=== PATIENT | male | born 1960 | race Caucasian/White ===

== ENCOUNTER 2019-05-29 07:41 | Outpatient (CLI) | payer OTHER, MEDICAID | END 2019-05-29 23:59 | disposition home or self-care (01) | LOC: ROC 07:41 | PROVIDERS: ATTEND Radiology Radiation Oncology | DX: C34.31 Malignant neoplasm of lower lobe, right bronchus or lung (principal) | CPT/HCPCS: 99214; G0463 ==

== ENCOUNTER 2019-08-14 07:38 | Outpatient (CLI) | payer OTHER, MEDICAID | END 2019-08-14 23:59 | disposition home or self-care (01) | LOC: ROC 07:38 | PROVIDERS: ATTEND Radiology Radiation Oncology | DX: Z08 Encounter for follow-up examination after completed treatment for malignant neoplasm (principal); C34.31 Malignant neoplasm of lower lobe, right bronchus or lung | CPT/HCPCS: 99212; G0463 ==

== ENCOUNTER 2019-11-16 14:37 | Inpatient (IN) | payer MEDICAID ==
[~2019-11-16] VITALS: Ht 182.9 cm; Wt 77.2 kg
[~2019-11-16 14:37] MED LIST: BACL-19 PO; GABA300C PO
--- NOTE | 2019-11-16 14:56 | NUR ---
CONTACT WITH PT, 59 YR OLD MALE HERE WITH C/O "SEVERE STOMACH PAINS, IT FEELS LIKE NAUSEA. I HAVENT THROWN UP. ON THE OF THIS MONTH I HAD MY FIRST CHEMO (LUNG CA) I FELT OK, THEN SATURDAY, I STARTED HAVING PAIN AND THE NAUSEA. I THOUGHT I COULD FIGHT IT OFF, BUT I JUST FEEL LIKE CRAP" PT SEEN BY DR GUNTER AT [facility]. "I WAS ON KETRUDA, BUT IT WASNT KILLING THE CANCER CELL" DX 07/10/2018, IN AUGUST 2018 STARTED DOING THE IMUNOTHERAPY.
[2019-11-16] MEDS ORDERED: ONDA8TAB9 PO (15:06)
[2019-11-16] MEDS ORDERED: FOLI-17 PO (15:06)
[2019-11-16] MEDS ORDERED: SODIUM CHLORIDE 0.9% 1,000 ML IV ONE (15:31)
[2019-11-16 15:51] LABS: MEAN CORPUSCULAR HEMOGLOBIN 31.3 pg (27.5-34.5); MEAN CORPUSCULAR HGB CONC 33.9 g/dL (33.2-36.2); MEAN CORPUSCULAR VOLUME 92.2 fL (81-97); MEAN PLATELET VOLUME 7.6 fL (7.4-10.4); PLATELET COUNT 420 x10^3/uL (130-400); RED BLOOD COUNT 5.24 x10^6/uL (4.38-5.82); RED CELL DISTRIBUTION WIDTH 14.5 % (9.4-14.8)
[2019-11-16 16:00] LABS: ALANINE AMINOTRANSFERASE 42 U/L (12-78); ALBUMIN 3.5 g/dL (3.4-5.0); ANION GAP 8 mmol/L (5-15); CALCIUM 9.5 mg/dL (8.5-10.1); CHLORIDE 99 mmol/L (98-107); CREATININE 0.97 mg/dL (0.7-1.3)
[2019-11-16] MEDS ORDERED: ONDANSETRON 2MG/ML, 2ML IVPush ONE (16:00)
[2019-11-16] MEDS ORDERED: HYDROmorphone 2 MG/ML, 1ML IVPush PRN (16:00)
[2019-11-16] MEDS ORDERED: SODIUM CHLORIDE FLUSH 10ML SYR IVF ONE (16:00)
[2019-11-16 16:02] LABS: MD YES
[2019-11-16 16:03] LABS: ALKALINE PHOSPHATASE 181 U/L (45-117); BILIRUBIN,TOTAL 0.8 mg/dL (0.2-1.0); TOTAL PROTEIN 7.6 g/dL (6.4-8.2)
[2019-11-16] MEDS ORDERED: ONDANSETRON 2MG/ML, 2ML ONE (16:03)
[2019-11-16] MEDS ORDERED: HYDROmorphone 1 MG/ML, 1ML INJ ONE (16:03)
--- NOTE | 2019-11-16 16:10 | NUR ---
IV STARTED, NS INFUSING ORDERED. PT MEDICATED ORDERED. AUTO BP AND PULSE OX IN PLACE. PT UPDATED ON POC. NO OTHER NEEDS EXPRESSED AT THIS TIME.
[2019-11-16 16:20] LABS: MICROSCOPIC INDICATED
--- NOTE | 2019-11-16 16:30 | NUR ---
PT "FEELS DOOPY" PT WITH PAIN DECREASED TO 07/11. AWARE OF WAITING FOR TEST RESULTS Addendum: 11/16/19 at 1833 by ALESSANDRA PT PLACED ON OXYGEN 2L NC R/T DECREASE IN SATS AFTER DILAUDID ADMINISTRATION.
--- NOTE | 2019-11-16 16:59 | NUR ---
PT ASKING FOR PO FLUIDS, DISCUSSED WITH DR FELTON. NO PO FLUIDS AT THIS TIME. DISCUSSED WITH PT. PT PROVIDED WITH LEMON GLYCERIN SWABS AND CT TO BE ORDERED. UNDERSTANDING VERBALIZED.
[2019-11-16 17:00] LABS: BAND#(MANUAL) 1.38 x10^3/uL; BANDS%(MANUAL) 7 % (0-7); LYMPH#(MANUAL) 0.39 x10^3/uL (1-3.4); LYMPHS% (MANUAL) 2 % (22-44); MONOS% (MANUAL) 1 % (2-9); SEG#(MANUAL) 17.73 x10^3/uL (1.8-6.8); SEGS% (MANUAL) 90 % (42-75)
[2019-11-16 17:01] LABS: <PLATELET ESTIMATE> INCREASED; <PLT MORPHOLOGY> NORMAL PLT MORPH; <RBC MORPHOLOGY> NORMAL
--- NOTE | 2019-11-16 18:06 | NUR ---
PT IN RADIOLOGY
--- NOTE | 2019-11-16 18:09 | NUR ---
PT RETURN TO ROOM. IV INFUSING WITHOUT REDNESS/SWELLING. PT PAIN 3-4/10. PT AWARE OF WAITING FOR TEST RESULTS. NO NEEDS EXPRESSED AT THIS TIME.
[2019-11-16] MEDS ORDERED: OMNIPAQUE 350 MG/ML, 100ML BOTTLE ONE (18:20)
[2019-11-16] MEDS ORDERED: AZITHROMYCIN 500 MG in SODIUM CHLORIDE 0.9% 250 ML IVPB ONE (19:00)
[2019-11-16] MEDS ORDERED: CEFTRIAXONE PMX 1GM/50ML 50 ML IVPB ONE (19:00)
--- NOTE | 2019-11-16 19:14 | NUR ---
PT AMBULATORY TO BATHROOM, STEADY GAIT. BEDSIDE REPORT FROM AVELINA SOLORIO.
--- NOTE | 2019-11-16 19:15 | NUR ---
BEDSIDE REPORT TO ROSANA QUAN
[2019-11-16] MEDS ORDERED: SODIUM CHLORIDE 0.9% 1,000 ML IV SCH (19:32)
--- NOTE | 2019-11-16 19:47 | NUR ---
ADMITTING MD TO BEDSIDE AT 1930.
[2019-11-16] MEDS ORDERED: CEFTRIAXONE PMX 1GM/50ML 50 ML ONE (19:48)
[2019-11-16] MEDS ORDERED: ACETAMINOPHEN 325 MG TABLET PO PRN (20:00)
[2019-11-16] MEDS ORDERED: HYDROcodone/APAP 5/325 TABLET PO PRN (20:00)
[2019-11-16] MEDS ORDERED: GUAIFENESIN/DM 200-20MG, 10ML UDC PO PRN (20:00)
[2019-11-16] MEDS ORDERED: VANCOMYCIN PER PHARMACY MC PRN (20:00)
[2019-11-16] MEDS ORDERED: morphine SULFATE 10 MG/ML, 1ML IVPush PRN (20:00)
[2019-11-16] MEDS ORDERED: DOCUSATE 100 MG CAPSULE PO PRN (20:00)
--- NOTE | 2019-11-16 20:00 | NUR ---
FIRST ATTEMPT TO CALL REPORT AT THIS TIME.
--- NOTE | 2019-11-16 20:12 | NUR ---
REPORT GIVEN TO FLOOR RN.
[2019-11-16] MEDS ORDERED: PHARMACOKINETIC MONITORING MC PRN (21:00)
[2019-11-16] MEDS ORDERED: PHARMACOKINETIC CONSULTATION MC ONE (21:00)
[2019-11-16] MEDS ORDERED: VANCOMYCIN 1,600 MG in SODIUM CHLORIDE 0.9% 250 ML IV SCH (21:00)
[2019-11-16] MEDS: PIPERACILLIN/TAZO/PMX 4.5GM 100 ML IV SCH (21:38)
[2019-11-16 22:33] VITALS: BP 153/94
[2019-11-16] MEDS: HEPARIN 5,000 UNITS/ML, 1ML SQ SCH (23:03)
[2019-11-17 01:40] VITALS: BP 123/84
[2019-11-17] MEDS: PIPERACILLIN/TAZO/PMX 4.5GM 100 ML IV SCH ×3 (04:56→21:07)
[2019-11-17 05:28] LABS: CHLORIDE 103 mmol/L (98-107)
[2019-11-17 05:35] LABS: ANION GAP 7 mmol/L (5-15); CALCIUM 8.8 mg/dL (8.5-10.1); CREATININE 0.78 mg/dL (0.7-1.3)
[2019-11-17 05:38] LABS: MEAN CORPUSCULAR HEMOGLOBIN 30.9 pg (27.5-34.5); MEAN CORPUSCULAR HGB CONC 33.2 g/dL (33.2-36.2); PLATELET COUNT 353 x10^3/uL (130-400); RED BLOOD COUNT 4.54 x10^6/uL (4.38-5.82); RED CELL DISTRIBUTION WIDTH 14.6 % (9.4-14.8)
[2019-11-17 06:07] LABS: MD YES
[2019-11-17 06:09] LABS: <PLATELET ESTIMATE> ADEQUATE; <PLT MORPHOLOGY> NORMAL PLT MORPH; <RBC MORPHOLOGY> NORMAL; BAND#(MANUAL) 0.45 x10^3/uL; BANDS%(MANUAL) 4 % (0-7); EOS#(MANUAL) 0.11 x10^3/uL (0.0-0.4); EOS% (MANUAL) 1 % (1-7); LYMPH#(MANUAL) 0.67 x10^3/uL (1-3.4); LYMPHS% (MANUAL) 6 % (22-44); MONOS#(MANUAL) 0.22 x10^3/uL (0.3-2.7); MONOS% (MANUAL) 2 % (2-9); SEG#(MANUAL) 9.74 x10^3/uL (1.8-6.8); SEGS% (MANUAL) 87 % (42-75)
[2019-11-17 08:49] VITALS: BP 112/77
[2019-11-17] MEDS: HEPARIN 5,000 UNITS/ML, 1ML SQ SCH ×2 (10:19→17:50)
[2019-11-17] MEDS ORDERED: MAGNESIUM HYDROXIDE 8%, 30ML UDC PO PRN (13:30)
[2019-11-17 13:42] VITALS: BP 122/84
[2019-11-17] MEDS: VANCOMYCIN 1,600 MG in SODIUM CHLORIDE 0.9% 250 ML IV SCH (16:40)
[2019-11-17 19:18] VITALS: BP 138/93
[2019-11-17] MEDS: ONDANSETRON 2MG/ML, 2ML IVPush PRN (20:14)
[2019-11-18 01:41] VITALS: BP 123/84
[2019-11-18] MEDS: VANCOMYCIN 1,600 MG in SODIUM CHLORIDE 0.9% 250 ML IV SCH ×2 (03:25→16:00)
[2019-11-18] MEDS: HEPARIN 5,000 UNITS/ML, 1ML SQ SCH ×3 (03:33→20:28)
[2019-11-18 04:43] LABS: MEAN CORPUSCULAR HEMOGLOBIN 30.9 pg (27.5-34.5); MEAN CORPUSCULAR HGB CONC 33.3 g/dL (33.2-36.2); MEAN CORPUSCULAR VOLUME 92.8 fL (81-97); MEAN PLATELET VOLUME 7.6 fL (7.4-10.4); PLATELET COUNT 323 x10^3/uL (130-400); RED BLOOD COUNT 4.27 x10^6/uL (4.38-5.82); RED CELL DISTRIBUTION WIDTH 14.4 % (9.4-14.8)
[2019-11-18 04:51] LABS: ANION GAP 6 mmol/L (5-15); CALCIUM 8.7 mg/dL (8.5-10.1); CHLORIDE 101 mmol/L (98-107)
[2019-11-18] MEDS: PIPERACILLIN/TAZO/PMX 4.5GM 100 ML IV SCH ×3 (05:08→20:28)
[2019-11-18 05:51] LABS: MD YES
[2019-11-18 05:53] LABS: BAND#(MANUAL) 0.65 x10^3/uL; BANDS%(MANUAL) 7 % (0-7); LYMPH#(MANUAL) 0.93 x10^3/uL (1-3.4); LYMPHS% (MANUAL) 10 % (22-44)
[2019-11-18 05:54] LABS: <PLATELET ESTIMATE> ADEQUATE; <PLT MORPHOLOGY> NORMAL PLT MORPH; <RBC MORPHOLOGY> NORMAL; EOS#(MANUAL) 0.19 x10^3/uL (0.0-0.4); EOS% (MANUAL) 2 % (1-7); MONOS#(MANUAL) 0.47 x10^3/uL (0.3-2.7); MONOS% (MANUAL) 5 % (2-9); SEG#(MANUAL) 7.07 x10^3/uL (1.8-6.8); SEGS% (MANUAL) 76 % (42-75)
[2019-11-18 08:22] VITALS: BP 109/75
[2019-11-18] MEDS: DICYCLOMINE 10 MG CAPSULE PO SCH ×3 (11:40→20:28)
[2019-11-18 14:12] VITALS: BP 107/72
[2019-11-18 19:00] VITALS: BP 149/91
[2019-11-18] MEDS: ONDANSETRON 2MG/ML, 2ML IVPush PRN (20:46)
[2019-11-19 00:05] VITALS: BP 132/84
[2019-11-19] MEDS: HEPARIN 5,000 UNITS/ML, 1ML SQ SCH ×2 (03:30→12:00)
[2019-11-19] MEDS: VANCOMYCIN 1,600 MG in SODIUM CHLORIDE 0.9% 250 ML IV SCH (03:31)
[2019-11-19 05:07] LABS: CHLORIDE 102 mmol/L (98-107)
[2019-11-19 05:16] LABS: ANION GAP 8 mmol/L (5-15)
[2019-11-19 05:17] LABS: MEAN CORPUSCULAR HEMOGLOBIN 31.1 pg (27.5-34.5); MEAN CORPUSCULAR HGB CONC 33.2 g/dL (33.2-36.2); MEAN CORPUSCULAR VOLUME 93.6 fL (81-97); MEAN PLATELET VOLUME 7.8 fL (7.4-10.4); PLATELET COUNT 301 x10^3/uL (130-400); RED BLOOD COUNT 4.37 x10^6/uL (4.38-5.82); RED CELL DISTRIBUTION WIDTH 14.4 % (9.4-14.8)
[2019-11-19] MEDS: PIPERACILLIN/TAZO/PMX 4.5GM 100 ML IV SCH ×2 (05:22→14:42)
[2019-11-19] MEDS: DICYCLOMINE 10 MG CAPSULE PO SCH ×2 (05:22→12:04)
[2019-11-19 06:00] LABS: BASOPHILS % (AUTO) 0 % (0-1); EOSINOPHILS # (AUTO) 0.25 x10^3/uL (0-0.4); EOSINOPHILS % (AUTO) 2 % (1-7); LYMPHOCYTES # (AUTO) 0.68 x10^3/uL (1-3.4); LYMPHOCYTES % (AUTO) 6 % (22-44); MD SCAN; MONOCYTES # (AUTO) 0.46 x10^3/uL (0.2-0.8); MONOCYTES % (AUTO) 4 % (2-9); NEUTROPHILS # (AUTO) 9.81 x10^3/uL (1.8-6.8); NEUTROPHILS % (AUTO) 88 % (42-75)
[2019-11-19 07:20] VITALS: BP 127/90
[2019-11-19] MEDS: ONDANSETRON 2MG/ML, 2ML IVPush PRN (08:22)
[2019-11-19] MEDS ORDERED: DICY10CA3 PO (11:44)
[2019-11-19] MEDS ORDERED: AZIT500T10 PO (11:44)
[2019-11-19 13:54] VITALS: BP 121/85
== END 2019-11-19 15:58 | disposition home or self-care (01) | DRG 391 ==
LOC: ED 17:08 → EDIP 19:51 → 4NW 20:31
PROVIDERS: ADMIT Family Medicine; ATTEND Hospitalist
DX: K58.9 Irritable bowel syndrome, unspecified (principal); J15.9 Unspecified bacterial pneumonia; E87.1 Hypo-osmolality and hyponatremia; C34.90 Malignant neoplasm of unspecified part of unspecified bronchus or lung; Z87.891 Personal history of nicotine dependence; Z85.118 Personal history of other malignant neoplasm of bronchus and lung; Z92.3 Personal history of irradiation; Z90.49 Acquired absence of other specified parts of digestive tract
CPT/HCPCS: 36415; 71045; 74177; 80048; 80053; 81001; 83605; 83690; 85025; 87040; 87070; 87081; 87205; G0378; J0696; J1170; J1644; J2405; J2543; J3370; Q9967; J2270; J7030; J7050

== ENCOUNTER 2020-01-12 11:05 | Emergency (ER) | payer MEDICAID ==
[~2020-01-12] VITALS: Ht 182.9 cm; Wt 75.7 kg
[~2020-01-12 11:05] MED LIST changes: +AZIT500T10 PO; +DICY10CA3 PO; +FOLI-17 PO; +ONDA8TAB9 PO
[2020-01-12 12:14] LABS: MEAN CORPUSCULAR HEMOGLOBIN 31.3 pg (27.5-34.5); MEAN CORPUSCULAR HGB CONC 33.4 g/dL (33.2-36.2); MEAN PLATELET VOLUME 7.2 fL (7.4-10.4); PLATELET COUNT 343 x10^3/uL (130-400); RED BLOOD COUNT 4.78 x10^6/uL (4.38-5.82); RED CELL DISTRIBUTION WIDTH 13.8 % (9.4-14.8)
[2020-01-12 12:27] LABS: ALANINE AMINOTRANSFERASE 44 U/L (12-78); ALBUMIN 3.7 g/dL (3.4-5.0); ANION GAP 5 mmol/L (5-15); CALCIUM 9.2 mg/dL (8.5-10.1); CHLORIDE 97 mmol/L (98-107); CREATININE 1.17 mg/dL (0.7-1.3)
[2020-01-12 12:29] LABS: ALKALINE PHOSPHATASE 173 U/L (45-117); BILIRUBIN,TOTAL 0.5 mg/dL (0.2-1.0)
[2020-01-12 12:54] LABS: MD YES
[2020-01-12 12:56] LABS: BANDS%(MANUAL) 6 % (0-7); EOS#(MANUAL) 0.15 x10^3/uL (0.0-0.4); EOS% (MANUAL) 1 % (1-7); LYMPHS% (MANUAL) 6 % (22-44); MONOS% (MANUAL) 6 % (2-9); SEG#(MANUAL) 12.15 x10^3/uL (1.8-6.8); SEGS% (MANUAL) 81 % (42-75)
[2020-01-12 12:57] LABS: <PLATELET ESTIMATE> ADEQUATE; <PLT MORPHOLOGY> NORMAL PLT MORPH; <RBC MORPHOLOGY> NORMAL
[2020-01-12 12:58] LABS: TOXIC GRAN 1+
--- NOTE | 2020-01-12 14:03 | NUR ---
PATIENT AMBULATED TO ROOM 34 AND WAS STEADY ON FEET. PT CHANGING INTO A GOWN. WARM BLANKET PROVIDED.
[2020-01-12] MEDS ORDERED: ONDANSETRON 2MG/ML, 2ML IVPush ONE (14:30)
[2020-01-12] MEDS ORDERED: MORPHINE SULFATE 4 MG/ML, 1ML IVPush PRN (14:30)
--- NOTE | 2020-01-12 14:47 | NUR ---
PT TO RM 22 AT THIS TIME, PIV INITIATED BC DRAWN
--- NOTE | 2020-01-12 14:58 | NUR ---
DISCUSSED SEPSIS CRITERIA AND XR RESULTS WITH ERMD, LACTIC AND BC ORDERED. ERMD DECLINED TO ORDERS ABX D/T NO PNA COMPLAINTS, PER ERMD PT WITH OLD RESOLVING PNA FROM AND PREVIOUSLY TREATED WITH ABX.
[2020-01-12] MEDS ORDERED: MORPHINE SULFATE 4 MG/ML, 1ML ONE (15:11)
[2020-01-12] MEDS ORDERED: ONDANSETRON 2MG/ML, 2ML ONE (15:11)
[2020-01-12] MEDS ORDERED: OMNIPAQUE 350 MG/ML, 100ML BOTTLE ONE (15:41)
--- NOTE | 2020-01-12 15:43 | NUR ---
PT BACK FROM CT, ADDITIONAL LABS DRAWN. VSS, PT MEDICATED PER MAR
[2020-01-12 17:15] VITALS: BP 110/83
== END 2020-01-12 17:43 | disposition home or self-care (01) ==
LOC: ED 17:00
DX: J18.9 Pneumonia, unspecified organism (principal); R10.31 Right lower quadrant pain; R10.33 Periumbilical pain; R00.0 Tachycardia, unspecified; Z90.49 Acquired absence of other specified parts of digestive tract; Z87.891 Personal history of nicotine dependence; Z85.118 Personal history of other malignant neoplasm of bronchus and lung
CPT/HCPCS: 36415; 74022; 74177; 80053; 83605; 83690; 85025; 87040; 93005; 96374; 96375; 99285; J2270; J2405; Q9967

== ENCOUNTER 2020-01-20 11:11 | Emergency (ER) | payer MEDICAID ==
[~2020-01-20] VITALS: Ht 182.9 cm; Wt 77.2 kg
--- NOTE | 2020-01-20 13:14 | NUR ---
PT C/O DIFFICULTY SWALLOWING SINCE SATURDAY THAT STARTED SPONTANEOUSLY. PT ABLE TO SWALLOW FOOD, BUT FEELS LIKE ITS DIFFICULT TO GET DOWN. PT DENIES ANY N/V, DIARRHEA. PT HAS ABDOMINAL TENDERNESS IN THE UMBILICAL REGION. PAIN 3/. PT HAS CURRENT DX OF LUNG CA.
[2020-01-20 13:19] VITALS: BP 127/95
--- NOTE | 2020-01-20 13:37 | NUR ---
OFF FLOOR TO XRAY
== END 2020-01-20 16:45 | disposition home or self-care (01) ==
LOC: ED 13:28
DX: R13.14 Dysphagia, pharyngoesophageal phase (principal); R07.89 Other chest pain; Z85.9 Personal history of malignant neoplasm, unspecified; Z87.891 Personal history of nicotine dependence; Z85.118 Personal history of other malignant neoplasm of bronchus and lung
CPT/HCPCS: 71045; 74220; 99284

== ENCOUNTER → 2020-01-25 | Outpatient (CLI) | payer MEDICAID ==
[~2020-01-25] MED LIST changes: +OMNIPAQUE 350 MG/ML, 75ML BOTTLE ONE
== END | disposition home or self-care (01) ==
LOC: CFH 10:13
PROVIDERS: ATTEND Internal Medicine Hematology & Oncology
DX: C34.11 Malignant neoplasm of upper lobe, right bronchus or lung (principal); R91.8 Other nonspecific abnormal finding of lung field; J18.9 Pneumonia, unspecified organism
CPT/HCPCS: 71260; Q9967

== ENCOUNTER 2020-01-26 09:44 | Emergency (ER) | payer MEDICAID ==
[~2020-01-26] VITALS: Ht 182.9 cm; Wt 77.7 kg
[~2020-01-26 09:44] MED LIST changes: -OMNIPAQUE 350 MG/ML, 75ML BOTTLE ONE
[2020-01-26 11:23] LABS: BASOPHILS % (AUTO) 0 % (0-1); EOSINOPHILS % (AUTO) 2 % (1-7); LYMPHOCYTES % (AUTO) 5 % (22-44); MEAN CORPUSCULAR HEMOGLOBIN 32.7 pg (27.5-34.5); MEAN CORPUSCULAR HGB CONC 34.7 g/dL (33.2-36.2); MEAN PLATELET VOLUME 6.6 fL (7.4-10.4); MONOCYTES % (AUTO) 7 % (2-9); NEUTROPHILS % (AUTO) 86 % (42-75); PLATELET COUNT 532 x10^3/uL (130-400); RED BLOOD COUNT 3.55 x10^6/uL (4.38-5.82); RED CELL DISTRIBUTION WIDTH 13.8 % (9.4-14.8)
[2020-01-26 11:29] LABS: MD NO
[2020-01-26 11:33] LABS: ALBUMIN 2.9 g/dL (3.4-5.0); ANION GAP 7 mmol/L (5-15); CALCIUM 8.8 mg/dL (8.5-10.1); CHLORIDE 103 mmol/L (98-107); CREATININE 0.95 mg/dL (0.7-1.3)
[2020-01-26 12:00] VITALS: BP 123/89
== END 2020-01-26 12:25 | disposition home or self-care (01) ==
LOC: ED 10:02
DX: J12.89 Other viral pneumonia (principal); Z20.828 Contact with and (suspected) exposure to other viral communicable diseases; R10.11 Right upper quadrant pain; Z90.49 Acquired absence of other specified parts of digestive tract; Z85.118 Personal history of other malignant neoplasm of bronchus and lung
CPT/HCPCS: 80048; 82040; 85025; 87635; 99283